=== PATIENT | female | born 1955 | race Hispanic/Latino ===

== ENCOUNTER → 2024-02-18 | Outpatient (REF) | payer MEDICARE | LOC: MAMMO 13:11 | PROVIDERS: ATTEND Internal Medicine | DX: N64.89 Other specified disorders of breast (principal) | CPT/HCPCS: 77066 ==

== ENCOUNTER → 2024-08-10 | Outpatient (REF) | payer MEDICARE | LOC: DX 10:27 | PROVIDERS: ATTEND Internal Medicine | DX: M85.88 Other specified disorders of bone density and structure, other site (principal); M54.6 Pain in thoracic spine | CPT/HCPCS: 72070; 77080 ==

== ENCOUNTER → 2025-02-01 | Outpatient (REF) | payer MEDICARE | LOC: MAMMO 13:00 | PROVIDERS: ATTEND Internal Medicine | DX: R92.8 Other abnormal and inconclusive findings on diagnostic imaging of breast (principal); N64.89 Other specified disorders of breast | CPT/HCPCS: 77066 ==